=== PATIENT | female | born 1940 | race Caucasian/White ===

== ENCOUNTER → 2017-10-19 | Outpatient (CLI) | payer MEDICARE, OTHER ==
[~2017-10-19] MED LIST: ASPI-933 PO; CEPH500C PO; CLOP75TA PO; LACT1CAP8 PO; LISI10TA2 PO; LISI20TA PO; SIMV40TA4 PO; SULF-222 PO; SULF1TAB38 PO; WRF5T PO
--- NOTE | 2017-10-20 18:30 | Diagnostic Imaging Report ---
Bilateral screening mammogram 2D views with tomosynthesis The current study was also evaluated with a Computer Aided Detection (CAD) system. Indication: Screening. No current complaints stated on the questionnaire. COMPARISON: 10/08/2016. FINDINGS: The breasts are composed of scattered fibroglandular densities. Occasional benign-appearing calcifications are seen. Allowing for technique and positional differences, no suspicious change is seen. IMPRESSION: No significant change. ACR BI-RADS Category 2: Benign findings. Result letter will be mailed to the patient. Note: At least 10% of breast cancer is not imaged by mammography. Dictated by: Dictated on workstation # [id number]
== END ==
LOC: RAD 14:14
PROVIDERS: ATTEND Internal Medicine
DX: Z12.31 Encounter for screening mammogram for malignant neoplasm of breast (principal)
CPT/HCPCS: 77067

== ENCOUNTER → 2018-05-02 | Outpatient (CLI) | payer MEDICARE, OTHER ==
--- NOTE | 2018-05-02 14:39 | Diagnostic Imaging Report ---
INDICATION: Chronic bilateral knee pain. AP, oblique, and lateral views of both knees are obtained. FINDINGS: There is patellofemoral spurring on both sides, worse on the right than on the left with joint space narrowing on the right side. There is mild medial and lateral joint space narrowing of both knees with osteophyte formation in the medial compartment, greater on the right side. There is chondrocalcinosis visualized on both sides. There is no definite joint effusion. 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 No acute bony abnormality. Dictated by: Dictated on workstation # [id number]
== END ==
LOC: RAD 13:19
PROVIDERS: ATTEND Internal Medicine
DX: M11.261 Other chondrocalcinosis, right knee (principal); M11.262 Other chondrocalcinosis, left knee; M17.0 Bilateral primary osteoarthritis of knee

== ENCOUNTER → 2018-10-20 | Outpatient (CLI) | payer MEDICARE, OTHER ==
--- NOTE | 2018-10-20 11:56 | Diagnostic Imaging Report ---
Indication: Routine screening. Comparison is made with prior mammogram from 10/19/2017 and 10/08/2016. 2-D and 3-D bilateral screening mammography was performed with CAD. Scattered fibroglandular densities are identified bilaterally. The parenchymal pattern is stable. No mass or malignant-appearing microcalcifications are seen. Axillae are unremarkable. Impression: BI-RADS category 1. No mammographic features suspicious for malignancy are identified. Dictated by: Dictated on workstation # [id number]
== END ==
LOC: RAD 09:41
PROVIDERS: ATTEND Internal Medicine
DX: Z12.31 Encounter for screening mammogram for malignant neoplasm of breast (principal)
CPT/HCPCS: 77067

== ENCOUNTER 2018-12-06 06:39 | Outpatient (CLI) | payer MEDICARE, OTHER ==
[~2018-12-06] VITALS: Ht 157.5 cm; Wt 65.8 kg
[2018-12-06] MEDS ORDERED: SIMV40TA4 PO (15:06)
[2018-12-06] MEDS ORDERED: CLOP75TA69 PO (15:06)
[2018-12-06] MEDS ORDERED: ASPI-999 PO (15:06)
== END 2018-12-06 15:11 | disposition home or self-care (01) ==
LOC: PREOP 06:39
PROVIDERS: ATTEND Specialist
DX: Z01.818 Encounter for other preprocedural examination (principal)

== ENCOUNTER 2018-12-09 08:21 | Day surgery (SDC) | payer MEDICARE, OTHER ==
[~2018-12-09] VITALS: Ht 157.5 cm; Wt 65.8 kg
[~2018-12-09 08:21] MED LIST changes: +ASPI-999 PO; +CLOP75TA69 PO
[2018-12-09] MEDS ORDERED: TIMOLOL MALEATE 0.5% 5 ML (TIMOPTIC) BTL OU PRN (08:30)
[2018-12-09] MEDS ORDERED: MOXIFLOXACIN OPHTH SOLN 5 MG/ML 0.3 ML SYRINGE OP ONE (08:30)
[2018-12-09] MEDS ORDERED: LIDOCAINE PF 1% 2 ML AMP IR PRN (08:30)
[2018-12-09] MEDS ORDERED: POVIDONE (BETADINE) OPHTH SOLN 5% 30 ML OP ONE (08:30)
[2018-12-09 08:32] VITALS: BP 139/69
[2018-12-09] MEDS: TETRACAINE 0.5% OPHTH SOLN 4 ML BTL (SINGLE DOSE ONLY) OU PRN ×4 (08:40→09:07)
[2018-12-09] MEDS: PHENYLEPHRINE 10% OPHTH (NEO-SYN) 5 ML BTL OU SCH ×3 (08:47→09:07)
[2018-12-09] MEDS: CYCLOPENTOLATE 1% (CYCLOGYL) 2 ML DROPS OP SCH ×3 (08:48→09:07)
[2018-12-09] MEDS ORDERED: MIDAZOLAM 2 MG/2 ML (VERSED) VIAL ONE (08:57)
--- NOTE | 2018-12-09 09:12 | Ophthalmologist Pre-Op Note ---
Pre-Operative Progress Note H&P Reviewed The H&P was reviewed, patient examined and no changes noted. Date H&P Reviewed: Dec 09, 2018 Time H&P Reviewed: 09:12 Pre-Op Dx Cataract, Left Eye TEENA DANIELS MD Dec 09, 2018 09:12
--- NOTE | 2018-12-09 09:35 | Ophthalmology Operative Report ---
Cataract removal/placement IOL PREOPERATIVE DIAGNOSIS: Cataract Left Eye POSTOPERATIVE DIAGNOSIS: Cataract Left Eye PROCEDURE: Cataract removal and placement of posterior chamber implant, left eye SURGEON: Alexys Daniels ANESTHESIA: Topical with sedation COMPLICATIONS: None ESTIMATED BLOOD LOSS: Minimal DESCRIPTION OF PROCEDURE: After proper informed consent was obtained, the patient, a 78 female, was taken to the Operating Room and the left eye was anesthetized with tetracaine. The left eye was then prepped and draped in the usual manner. A wire lid speculum was placed. A paracentesis was made at the left hand position. Preservative free lidocaine was injected into the anterior chamber followed by viscoelastic. A clear corneal incision was made in the temporal position. A capsulorrhexis was preformed and the central nuclear and cortical material were removed. The posterior capsule was polished and an Escobar 18.5 AU00T0 was placed into the capsular bag. The residual viscoelastic was aspirated and balanced saline solution was injected into the anterior chamber. Moxifloxacin was injected into the anterior chamber. The wound was checked and found to be water tight. The patient tolerated the procedure well without complications. ALEXYS DANIELS MD Dec 09, 2018 09:35
[2018-12-09 09:43] VITALS: BP 131/67
[2018-12-09] MEDS ORDERED: acetaZOLAMIDE ER 500 MG CAP (DIAMOX SEQUELS) PO ONE (10:00)
--- NOTE | 2018-12-09 12:41 | Anesthesia-General Post-Op ---
MAC Patient Condition Mental Status/LOC: Same as Preop Cardiovascular: Satisfactory Nausea/Vomiting: Absent Respiratory: Satisfactory Pain: Controlled Complications: Absent Post Op Complications Complications None Follow Up Care/Instructions Patient Instructions None needed. Anesthesiology Discharge Order Discharge Order Patient is doing well, no complaints, stable vital signs, no apparent adverse anesthesia problems. No complications reported per nursing. SVETALNA ROJAS CRNA Dec 09, 2018 12:41
== END 2018-12-09 09:45 | disposition home or self-care (01) ==
LOC: SDC 08:21
PROVIDERS: ATTEND Specialist
DX: H25.12 Age-related nuclear cataract, left eye (principal); E78.00 Pure hypercholesterolemia, unspecified; I73.9 Peripheral vascular disease, unspecified; Z87.891 Personal history of nicotine dependence; Z79.02 Long term (current) use of antithrombotics/antiplatelets; Z79.82 Long term (current) use of aspirin; Z79.899 Other long term (current) drug therapy

== ENCOUNTER 2018-12-20 06:28 | Outpatient (CLI) | payer MEDICARE, OTHER | END 2018-12-20 12:15 | disposition home or self-care (01) | LOC: PREOP 06:28 | PROVIDERS: ATTEND Specialist | DX: Z01.818 Encounter for other preprocedural examination (principal) ==

== ENCOUNTER 2018-12-23 08:06 | Day surgery (SDC) | payer MEDICARE, OTHER ==
[~2018-12-23] VITALS: Ht 157.5 cm; Wt 65.8 kg
[2018-12-23 08:10] VITALS: BP 139/66
[2018-12-23] MEDS ORDERED: POVIDONE (BETADINE) OPHTH SOLN 5% 30 ML OP ONE (08:15)
[2018-12-23] MEDS ORDERED: LIDOCAINE PF 1% 2 ML AMP IR PRN (08:15)
[2018-12-23] MEDS ORDERED: TIMOLOL MALEATE 0.5% 5 ML (TIMOPTIC) BTL OU PRN (08:15)
[2018-12-23] MEDS ORDERED: MOXIFLOXACIN OPHTH SOLN 5 MG/ML 0.3 ML SYRINGE OP ONE (08:15)
[2018-12-23] MEDS: TETRACAINE 0.5% OPHTH SOLN 4 ML BTL (SINGLE DOSE ONLY) OU PRN ×4 (08:27→08:50)
[2018-12-23] MEDS: CYCLOPENTOLATE 1% (CYCLOGYL) 2 ML DROPS OP SCH ×3 (08:40→08:50)
[2018-12-23] MEDS: PHENYLEPHRINE 10% OPHTH (NEO-SYN) 5 ML BTL OU SCH ×3 (08:40→08:50)
[2018-12-23] MEDS ORDERED: MIDAZOLAM 2 MG/2 ML (VERSED) VIAL ONE (08:53)
--- NOTE | 2018-12-23 09:09 | Ophthalmologist Pre-Op Note ---
Pre-Operative Progress Note H&P Reviewed The H&P was reviewed, patient examined and no changes noted. Date H&P Reviewed: Dec 23, 2018 Time H&P Reviewed: 09:08 Pre-Op Dx Cataract, Right Eye TEENA DANIELS MD Dec 23, 2018 09:08
--- NOTE | 2018-12-23 09:30 | Ophthalmology Operative Report ---
Cataract removal/placement IOL PREOPERATIVE DIAGNOSIS: Cataract Right Eye POSTOPERATIVE DIAGNOSIS: Cataract Right Eye PROCEDURE: Cataract removal and placement of posterior chamber implant, right eye SURGEON: Alexys Daniels ANESTHESIA: Topical with sedation COMPLICATIONS: None ESTIMATED BLOOD LOSS: Minimal DESCRIPTION OF PROCEDURE: After proper informed consent was obtained, the patient, a 78 female, was taken to the Operating Room and the right eye was anesthetized with tetracaine. The right eye was then prepped and draped in the usual manner. A wire lid speculum was placed. A paracentesis was made at the left hand position. Preservative free lidocaine was injected into the anterior chamber followed by viscoelastic. A clear corneal incision was made in the temporal position. A capsulorrhexis was preformed and the central nuclear and cortical material were removed. The posterior capsule was polished and Escobar 16.0 AU00T0 IOL was placed into the capsular bag. The residual viscoelastic was aspirated and balanced saline solution was injected into the anterior chamber. Moxifloxacin was injected into the anterior chamber. The wound was checked and found to be water tight. The patient tolerated the procedure well without complications. ALEXYS DANIELS MD Dec 23, 2018 09:30
[2018-12-23 09:38] VITALS: BP 114/77
[2018-12-23] MEDS ORDERED: acetaZOLAMIDE ER 500 MG CAP (DIAMOX SEQUELS) PO ONE (10:00)
--- NOTE | 2018-12-23 12:52 | Anesthesia-General Post-Op ---
MAC Patient Condition Mental Status/LOC: Same as Preop Cardiovascular: Satisfactory Nausea/Vomiting: Absent Respiratory: Satisfactory Pain: Controlled Complications: Absent Post Op Complications Complications None Follow Up Care/Instructions Patient Instructions None needed. Anesthesiology Discharge Order Discharge Order Patient is doing well, no complaints, stable vital signs, no apparent adverse anesthesia problems. No complications reported per nursing. MARIAN DUMONT CRNA Dec 23, 2018 12:52
== END 2018-12-23 09:38 | disposition home or self-care (01) ==
LOC: SDC 08:06
PROVIDERS: ATTEND Specialist
DX: H25.11 Age-related nuclear cataract, right eye (principal); F17.210 Nicotine dependence, cigarettes, uncomplicated; Z86.73 Personal history of transient ischemic attack (TIA), and cerebral infarction without residual deficits; Z79.02 Long term (current) use of antithrombotics/antiplatelets; Z79.82 Long term (current) use of aspirin; Z79.899 Other long term (current) drug therapy

== ENCOUNTER → 2019-10-26 | Outpatient (CLI) | payer MEDICARE, OTHER ==
[~2019-10-26] MED LIST changes: +SIMV40TA25 PO
--- NOTE | 2019-10-26 11:59 | Diagnostic Imaging Report ---
INDICATION: Routine screening. COMPARISON: Comparison is made with prior mammograms from 10/20/2018 and 10/19/2017. TECHNIQUE: 2-D and 3-D bilateral screening mammography was performed. The current study was also evaluated with a Computer Aided Detection (CAD) system. 3-D tomosynthesis was also performed and reviewed. FINDINGS: Scattered fibroglandular densities are identified bilaterally. The parenchymal pattern is stable. No mass or malignant-appearing microcalcifications are seen. Axillae are unremarkable. IMPRESSION: No mammographic features suspicious for malignancy are identified. ACR BI-RADS Category 1: Negative. Result letter will be mailed to the patient. Note: At least 10% of breast cancer is not imaged by mammography. Dictated by: Dictated on workstation # [id number]
== END ==
LOC: RAD 10:04
PROVIDERS: ATTEND Internal Medicine
DX: Z12.31 Encounter for screening mammogram for malignant neoplasm of breast (principal)
CPT/HCPCS: 77067

== ENCOUNTER → 2019-12-05 | Outpatient (CLI) | payer MEDICARE, OTHER ==
--- NOTE | 2019-12-05 16:16 | Diagnostic Imaging Report ---
INDICATION: Postmenopausal female. COMPARISON: 12/10/2011. FINDINGS: AP Spine L2-L4: [BMD (g/cm2): 1.284] [T-Score: 0.7] [Z-Score: 2.5] [BMD Previous: 1.223] [BMD % Change: 5.0] LT Hip Neck: [BMD (g/cm2): 0.847] [T-Score: -1.4] [Z-Score: 0.7] LT Hip Total: [BMD (g/cm2):0.872] [T-Score:-1.2] [Z-Score: 0.8] [BMD Previous: 0.857] [BMD % Change: -1.8] RT Hip Neck: [BMD (g/cm2):0.817] [T-Score:-1.6] [Z-Score:0.5] RT Hip Total: [BMD (g/cm2):0.826] [T-score:-1.4] [Z-Score:0.5] [BMD Previous:0.831] [BMD % Change:-0.6] *Indicates significant change from prior examination based on 95% confidence level. World Health Organization criteria for BMD interpretation classify patients as Normal (T-score at or above -1.0), Osteopenic (T-score between -1.0 and -2.5) or Osteoporotic (T-score at or below -2.5). LIMITATIONS AND MODIFICATION: Degenerative changes in the lumbar spine likely falsely elevate bone density. FRACTURE RISK (FRAX SCORE): The ten year probability of (%): Major Osteoporotic Fracture: [13.4] Hip Fracture: [3.2] IMPRESSION: 1. Osteopenia (Low bone mass). 2. No statistically significant change in bone mineral density since prior examination. 3. See below National Osteoporosis Foundation guidelines on when to potentially initiate pharmacologic therapy. Based on the National Osteoporosis Foundation Guidelines, pharmacologic treatment should be initiated in any of the following, unless clinical conditions suggest otherwise: * Any patient with prior fragility fracture of the hip or vertebrae. A spine fracture indicates 5X risk for subsequent spine fracture and 2X risk for subsequent hip fracture. * Osteoporosis (T-score <-2.5). * Postmenopausal women and men age 50 and older with low bone mass/osteopenia (T-score between -1.0 and -2.5) by DXA and 10-year major osteoporotic fracture greater than 20% or a 10-year probability of hip fracture greater than 3%. These fracture risks are supplied above in the FRAX score, if applicable. * Clinician judgement and/or patient preferences may indicate treatment for people with 10-year fracture probabilities above or below these levels. Dictated by: Dictated on workstation # [id number]
== END ==
LOC: RAD 13:48
PROVIDERS: ATTEND Internal Medicine
DX: M81.0 Age-related osteoporosis without current pathological fracture (principal); M85.80 Other specified disorders of bone density and structure, unspecified site; Z78.0 Asymptomatic menopausal state
CPT/HCPCS: 77080

== ENCOUNTER → 2021-02-17 | Outpatient (CLI) | payer MEDICARE, OTHER ==
--- NOTE | 2021-02-17 14:00 | Diagnostic Imaging Report ---
EXAMINATION: Right knee at 1:34 p.m. INDICATION: Knee pain. Three views were obtained. There is no fracture, dislocation or acute bony abnormality evident. As noted on the prior exam of 05/02/2018 there is degenerative disease involving the knee joint including narrowing of all 3 compartments, particularly the patellofemoral space. Chondrocalcinosis of both menisci was also seen on the prior exam. Those findings are again evident on this study do not appear to have progressed significantly. The soft tissues are unremarkable. IMPRESSION: 1. There is no evidence for an acute bony abnormality. 2. The degenerative changes involving the knee joint seen on the previous study have not progressed significantly. Dictated by: Dictated on workstation # [id number]
== END ==
LOC: RAD 13:13
PROVIDERS: ATTEND Internal Medicine
DX: M16.11 Unilateral primary osteoarthritis, right hip (principal); M46.06 Spinal enthesopathy, lumbar region; M99.03 Segmental and somatic dysfunction of lumbar region; M99.04 Segmental and somatic dysfunction of sacral region
CPT/HCPCS: 73562

== ENCOUNTER → 2021-05-19 | Outpatient (CLI) | payer MEDICARE, OTHER ==
--- NOTE | 2021-05-20 12:32 | Diagnostic Imaging Report ---
INDICATION: Routine screening. Comparison is made with prior mammogram 10/26/2019 at 10/20/2018. 2-D and 3-D bilateral screening mammography was performed with CAD. Scattered fibroglandular densities are identified bilaterally. The parenchymal pattern is stable. No mass or malignant appearing microcalcifications are seen. Axillae are unremarkable. IMPRESSION: BI-RADS Category 1 No mammographic features suspicious for malignancy are identified. Dictated by: Dictated on workstation # [id number]
== END ==
LOC: RAD 14:45
PROVIDERS: ATTEND Internal Medicine
DX: Z12.31 Encounter for screening mammogram for malignant neoplasm of breast (principal)
CPT/HCPCS: 77063; 77067

== ENCOUNTER → 2021-10-31 | Outpatient (CLI) | payer MEDICARE, OTHER ==
--- NOTE | 2021-10-31 13:01 | Diagnostic Imaging Report ---
INDICATION: Pneumonia PA and lateral views of the chest are obtained with comparison made to study of 10/17/2013. FINDINGS: Heart size and pulmonary vascularity are within normal limits, and the lungs are clear, bilaterally. IMPRESSION: Unremarkable chest. Dictated by: Dictated on workstation # [id number]
== END ==
LOC: RAD 11:18
PROVIDERS: ATTEND Internal Medicine
DX: J18.1 Lobar pneumonia, unspecified organism (principal)
CPT/HCPCS: 71046

== ENCOUNTER 2021-11-19 10:45 | Outpatient (RCR) | payer MEDICARE, OTHER | END 2021-11-21 | disposition home or self-care (01) | PROVIDERS: ATTEND Family Medicine Adult Medicine | DX: M17.11 Unilateral primary osteoarthritis, right knee (principal) ==

== ENCOUNTER 2021-12-17 10:29 | Outpatient (RCR) | payer MEDICARE, OTHER | END 2021-12-22 | disposition home or self-care (01) | PROVIDERS: ATTEND Family Medicine Adult Medicine | DX: M17.11 Unilateral primary osteoarthritis, right knee (principal); I10 Essential (primary) hypertension ==

== ENCOUNTER 2022-01-13 08:43 | Outpatient (RCR) | payer MEDICARE, OTHER | END 2022-01-19 | disposition home or self-care (01) | PROVIDERS: ATTEND Family Medicine Adult Medicine | DX: M17.11 Unilateral primary osteoarthritis, right knee (principal); M11.261 Other chondrocalcinosis, right knee; I10 Essential (primary) hypertension ==

== ENCOUNTER → 2022-02-19 | Outpatient (RCR) | payer MEDICARE, OTHER | END | disposition home or self-care (01) | PROVIDERS: ATTEND Family Medicine Adult Medicine | DX: M17.11 Unilateral primary osteoarthritis, right knee (principal); M11.261 Other chondrocalcinosis, right knee; I10 Essential (primary) hypertension ==

== ENCOUNTER 2022-03-19 10:07 | Outpatient (RCR) | payer MEDICARE, OTHER | END 2022-03-19 16:01 | disposition home or self-care (01) | PROVIDERS: ATTEND Family Medicine Adult Medicine | DX: M17.11 Unilateral primary osteoarthritis, right knee (principal); M11.261 Other chondrocalcinosis, right knee; I10 Essential (primary) hypertension ==

== ENCOUNTER 2022-05-19 10:20 | Outpatient (RCR) | payer MEDICARE, OTHER | END 2022-05-21 | disposition home or self-care (01) | PROVIDERS: ATTEND Internal Medicine | DX: M47.896 Other spondylosis, lumbar region (principal) ==

== ENCOUNTER → 2022-05-20 | Outpatient (CLI) | payer MEDICARE, OTHER ==
--- NOTE | 2022-05-20 14:40 | Diagnostic Imaging Report ---
INDICATION: Routine screening. COMPARISON: 05/19/2021 and 10/26/2019. TECHNIQUE: 2D and 3D bilateral screening mammography was performed with CAD. FINDINGS: Scattered fibroglandular densities are identified bilaterally. The parenchymal pattern is stable. No mass or malignant-appearing microcalcifications are seen. Occasional benign calcifications are noted. The axillae are unremarkable. IMPRESSION: No mammographic features suspicious for malignancy are identified. ACR BI-RADS Category 2: Benign findings. Result letter will be mailed to the patient. Note: At least 10% of breast cancer is not imaged by mammography. Dictated by: Dictated on workstation # [id number]
== END ==
LOC: RAD 10:15
PROVIDERS: ATTEND Internal Medicine
DX: Z12.31 Encounter for screening mammogram for malignant neoplasm of breast (principal)
CPT/HCPCS: 77063; 77067

== ENCOUNTER 2022-06-11 15:24 | Outpatient (RCR) | payer MEDICARE, OTHER | END 2022-06-21 | disposition home or self-care (01) | PROVIDERS: ATTEND Internal Medicine | DX: M47.896 Other spondylosis, lumbar region (principal); I10 Essential (primary) hypertension ==

== ENCOUNTER 2022-07-20 12:57 | Outpatient (RCR) | payer MEDICARE, OTHER | END 2022-07-22 | disposition home or self-care (01) | PROVIDERS: ATTEND Internal Medicine | DX: M47.896 Other spondylosis, lumbar region (principal); I10 Essential (primary) hypertension ==

== ENCOUNTER 2022-08-19 09:31 | Outpatient (RCR) | payer MEDICARE, OTHER | END 2022-08-21 | disposition home or self-care (01) | PROVIDERS: ATTEND Internal Medicine | DX: M47.896 Other spondylosis, lumbar region (principal); I10 Essential (primary) hypertension ==

== ENCOUNTER 2022-09-08 13:43 | Outpatient (RCR) | payer MEDICARE, OTHER | END 2022-09-21 | disposition home or self-care (01) | PROVIDERS: ATTEND Internal Medicine | DX: M47.816 Spondylosis without myelopathy or radiculopathy, lumbar region (principal); I10 Essential (primary) hypertension ==

== ENCOUNTER → 2022-10-21 | Outpatient (RCR) | payer MEDICARE, OTHER ==
[~2022-10-21] MED LIST changes: +CLOP-31 PO; -CLOP75TA69 PO
== END ==
PROVIDERS: ATTEND Internal Medicine
DX: M47.816 Spondylosis without myelopathy or radiculopathy, lumbar region (principal)

== ENCOUNTER 2022-11-20 15:12 | Outpatient (RCR) | payer MEDICARE, OTHER | END 2022-11-21 | disposition home or self-care (01) | PROVIDERS: ATTEND Internal Medicine | DX: M47.816 Spondylosis without myelopathy or radiculopathy, lumbar region (principal); I10 Essential (primary) hypertension ==

== ENCOUNTER 2022-12-08 09:28 | Outpatient (RCR) | payer MEDICARE, OTHER | END 2022-12-22 | disposition home or self-care (01) | PROVIDERS: ATTEND Internal Medicine | DX: M47.816 Spondylosis without myelopathy or radiculopathy, lumbar region (principal); I10 Essential (primary) hypertension ==

== ENCOUNTER 2022-12-23 14:59 | Outpatient (RCR) | payer MEDICARE, OTHER | END 2022-12-31 10:37 | disposition home or self-care (01) | PROVIDERS: ATTEND Internal Medicine | DX: M47.816 Spondylosis without myelopathy or radiculopathy, lumbar region (principal); I10 Essential (primary) hypertension ==

== ENCOUNTER 2023-01-14 13:39 | Outpatient (RCR) | payer MEDICARE, OTHER | END 2023-01-19 | disposition home or self-care (01) | PROVIDERS: ATTEND Family Medicine Adult Medicine | DX: M19.012 Primary osteoarthritis, left shoulder (principal); M67.912 Unspecified disorder of synovium and tendon, left shoulder; R29.898 Other symptoms and signs involving the musculoskeletal system ==

== ENCOUNTER 2023-02-03 14:07 | Outpatient (RCR) | payer MEDICARE, OTHER | END 2023-02-19 | disposition home or self-care (01) | PROVIDERS: ATTEND Family Medicine Adult Medicine | DX: M19.012 Primary osteoarthritis, left shoulder (principal); M67.912 Unspecified disorder of synovium and tendon, left shoulder; I10 Essential (primary) hypertension ==

== ENCOUNTER 2023-05-20 14:11 | Outpatient (RCR) | payer MEDICARE, OTHER | END 2023-05-21 | disposition home or self-care (01) | PROVIDERS: ATTEND Internal Medicine | DX: M47.896 Other spondylosis, lumbar region (principal); I10 Essential (primary) hypertension ==

== ENCOUNTER 2023-06-16 13:50 | Outpatient (RCR) | payer MEDICARE, OTHER | END 2023-06-21 | disposition home or self-care (01) | PROVIDERS: ATTEND Internal Medicine | DX: M47.896 Other spondylosis, lumbar region (principal); I10 Essential (primary) hypertension ==

== ENCOUNTER 2023-07-21 15:32 | Outpatient (RCR) | payer MEDICARE, OTHER | END 2023-07-22 | disposition home or self-care (01) | PROVIDERS: ATTEND Internal Medicine | DX: M47.896 Other spondylosis, lumbar region (principal) ==

== ENCOUNTER 2023-09-15 12:53 | Outpatient (RCR) | payer MEDICARE, OTHER | END 2023-09-21 | disposition home or self-care (01) | PROVIDERS: ATTEND Internal Medicine | DX: M47.896 Other spondylosis, lumbar region (principal); I10 Essential (primary) hypertension ==

== ENCOUNTER → 2023-10-21 | Outpatient (RCR) | payer MEDICARE, OTHER | END | disposition home or self-care (01) | PROVIDERS: ATTEND Internal Medicine | DX: M47.896 Other spondylosis, lumbar region (principal) ==